=== PATIENT | female | born 1970 | race Caucasian/White ===

== ENCOUNTER 2020-05-13 17:46 | Inpatient (IN) ==
[2020-05-13] MEDS ORDERED: ONDANSETRON 4 MG/2 ML VIAL IV STA (20:04)
[2020-05-13] MEDS ORDERED: busPIRone 10 MG TABLET PO ONE (20:04)
[2020-05-13 20:52] LABS: Basophils % 0.3 % (0.0-0.8); Hematocrit 35.7 VOL% (35.7-47.0); Hemoglobin 12.8 GM/DL (12.0-16.0); Immature Granulocytes % 0.7 %; Immature Granulocytes Absolute 0.07 #; Lymphocytes # 0.8 10*3/uL (1.4-4.0); Lymphocytes % 8.7 % (21.3-54.2); Mean Corpuscular HGB Conc 35.9 GM/DL (32-36); Mean Corpuscular Volume 86.9 FL (87-102); Mean Platelet Volume 8.6 FL (9.6-12.0); Monocytes % 6.5 % (1.7-12.7); Neutrophils % 83.8 % (38.7-73.9); Platelet Count 287 T/CUMM (130-400); Red Blood Count 4.11 MC/CUMM (3.8-5.5); Red Cell Distribution Width 11.9 % (9.3-17.3); White Blood Count 9.6 T/CUMM (4-12)
[2020-05-13 21:07] LABS: PT Patient Result 11.2 SECS (9.8-11.9)
[2020-05-13 21:22] LABS: Free T4 (Free Thyroxine) 1.51 NG/DL (0.76-1.46); Thyroid Stimulating Hormone 0.688 uIU/ml (0.358-3.74); Troponin I < 0.015 NG/ML (0.00-0.045)
[2020-05-13] MEDS ORDERED: MAGNESIUM SULF RIDER 2 GM in PREMIX 1 EACH IV STA (21:34)
[2020-05-13 21:55] LABS: Apearance,Urine CLEAR (Clear); Bilirubin,Urine Negative (Negative); Blood, Urine Small mg/dL (Negative); Glucose,Urine (UA) Negative (Negative); Ketones,Urine 5 mg/dL (Negative); Nitrite,Urine Negative (Negative); Protein,Urine Negative; RBC,Urine <1 /HPF (0-4); Urine Color Colorless (Yellow); Urine Specific Gravity 1.001 (1.001-1.035); Urine Urobilinogen < 2.0 EU/DL (0.2-1.0); WBC,Urine <1 /HPF (0-6)
[2020-05-13 22:00] LABS: Barbiturates Screen,Urine Negative (Negative); Benzodiazepines Screen,Urine Negative (Negative); Cannabinoid Screen,Urine Negative (Negative); Opiate Screen,Urine Negative (Negative); Phencyclidine Screen,Urine Negative (Negative)
[2020-05-13 22:59] LABS: Albumin 3.9 G/DL (3.4-5.0); Bilirubin,Total 0.6 MG/DL (0.2-1.0); Calcium 8.6 MG/DL (8.5-10.1); Osmolality,Calculated 237.3 MOS/KG (273-304); Total Protein 7.5 G/DL (6.4-8.3)
[2020-05-13] MEDS ORDERED: POTASSIUM CHLORIDE RIDER 20 MEQ in PREMIX 1 EACH IV STA (23:08)
[2020-05-13] MEDS ORDERED: SODIUM CHLORIDE 0.9% 1,000 ML IV SCH (23:45)
[2020-05-13] MEDS ORDERED: SODIUM CHLORIDE 0.9% 500 ML IV STA (23:52)
[2020-05-13] MEDS ORDERED: PROMETHAZINE 25 MG/1 ML VIAL IM PRN (23:53)
[2020-05-13] MEDS ORDERED: ZALEPLON 5 MG CAPSULE PO PRN (23:53)
[2020-05-13] MEDS ORDERED: ONDANSETRON 4 MG/2 ML VIAL IV PRN (23:53)
[2020-05-13] MEDS ORDERED: ALBUTEROL 2.5 MG/3 ML NEB RESP TX PRN (23:53)
[2020-05-13] MEDS ORDERED: LORazepam 2 MG/1 ML VIAL IV PRN (23:55)
[2020-05-14 01:50] LABS: ABG Base Excess 1.1 MMOL/L (-2.5-2.5); ABG HCO3 25.4 MMOL/L (20-26); ABG Oxygen Saturation 99.5 % (95-100); ABG PCO2 22.8 MM HG (35-48); ABG TCO2 18.6 MMOL/L (23-27); Allen Test Positive; Pt O2 Delivery Device Room Air
[2020-05-14] MEDS: POTASSIUM CHLORIDE RIDER 100 ML IV SCH ×2 (02:15→03:38)
[2020-05-14 04:58] LABS: Basophils % 0.3 % (0.0-0.8); Eosinophils % 0.2 % (0.00-10.9); Hemoglobin 13.4 GM/DL (12.0-16.0); Immature Granulocytes % 0.4 %; Immature Granulocytes Absolute 0.04 #; Lymphocytes # 1.1 10*3/uL (1.4-4.0); Lymphocytes % 11.2 % (21.3-54.2); Mean Corpuscular HGB Conc 35.3 GM/DL (32-36); Mean Corpuscular Volume 88.2 FL (87-102); Mean Platelet Volume 9.1 FL (9.6-12.0); Monocytes % 8.3 % (1.7-12.7); Neutrophils % 79.6 % (38.7-73.9); Platelet Count 342 T/CUMM (130-400); Red Blood Count 4.31 MC/CUMM (3.8-5.5); Red Cell Distribution Width 11.9 % (9.3-17.3)
[2020-05-14 05:00] LABS: Calcium 8.6 MG/DL (8.5-10.1); Osmolality,Calculated 263.2 MOS/KG (273-304)
[2020-05-14] MEDS ORDERED: hydrOXYzine HCL 25 MG TABLET PO PRN (10:25)
[2020-05-14] MEDS: ENOXAPARIN 40 MG/0.4 ML SYRINGE SUBCUT SCH (10:40)
[2020-05-14] MEDS: PANTOPRAZOLE 40 MG VIAL IV SCH (10:40)
[2020-05-14 13:55] LABS: Calcium 9.1 MG/DL (8.5-10.1); Osmolality,Calculated 274.4 MOS/KG (273-304)
[2020-05-15 06:14] LABS: Calcium 8.4 MG/DL (8.5-10.1); Osmolality,Calculated 277.5 MOS/KG (273-304)
[2020-05-15] MEDS ORDERED: ATORVASTATIN 40 MG TABLET PO SCH (09:00)
[2020-05-15] MEDS ORDERED: POTASSIUM CHLORIDE 20 MEQ TABLET PO ONE (09:04)
[2020-05-15] MEDS: ENOXAPARIN 40 MG/0.4 ML SYRINGE SUBCUT SCH (09:51)
[2020-05-15] MEDS: PANTOPRAZOLE 40 MG VIAL IV SCH (10:03)
[2020-05-15 12:16] VITALS: BP 112/62
== END 2020-05-15 12:00 | disposition home or self-care (01) | DRG 645 ==
LOC: N.ED 17:46 → SUATTDRO 23:52 → N.EDINP 23:52 → N.ICU 05-14 08:16 → N.4E 05-14 15:07
PROVIDERS: ADMIT Internal Medicine; ATTEND Internal Medicine